=== PATIENT | male | born 1965 | race Caucasian/White ===

== ENCOUNTER → 2018-04-25 11:16 | Outpatient (CLI) | payer OTHER, SELFPAY ==
--- NOTE | 2018-04-25 11:16 | DT_ITS ---
This patient was seen during an EMR downtime April 25, 2018 - May 02, 2018. This patient may have a combination of paper and electronic documentation or all paper documentation. All documentation is viewable within the e-chart portion of [employer] for each patient visit.
[2018-05-01 03:39] LABS: Hematocrit 44.3 % (40-54); Hemoglobin 14.4 g/dl (13.0-16.5); Mean Corp Hgb Conc 32.5 g/gl (32-36); Mean Corpuscular Hgb 31.9 pg (27.0-32.0); Mean Platelet Vol. 10.4 fl (6.2-12.0); Platelet Count 237 K/mm3 (150-450); RBC Distribution Width CV 13.6 % (11.6-14.6); RBC Distribution Width SD 48.6 fl (35.1-43.9); Red Blood Count 4.52 M/mm3 (4.6-6.2); Scan Indicated on CBC? Y/N NO; White Blood Count 6.6 K/mm3 (4.4-11.0)
[2018-05-01 04:12] LABS: ALB/GLOB Ratio 1.1 RATIO (0.9-2.4); Albumin, Serum 3.7 g/dL (3.2-5.0); BUN 17 mg/dL (7-18); BUN/Creat Ratio 14.7 RATIO (10-20); Creatinine, Serum 1.16 mg/dL (0.70-1.30); EST Glomerular Filtration Rate 71 mL/min (>60); Est Glom Filt Rate - Afr Amer 86 mL/min (>60); Globulin 3.4 g/dL (2.2-4.2); Glucose 96 mg/dL (74-106); Protein, Total 7.1 g/dL (6.4-8.2)
[2018-05-01 04:13] LABS: AST(SGOT) 33 U/L (15-37); Alanine Aminotransfer ALT/SGPT 48 U/L (16-61); Alkaline Phosphatase 66 U/L (45-117); Calcium,Total 8.5 mg/dL (8.5-10.1); Chloride 110 mmol/L (98-107); Cholesterol 245 mg/dL (200); High Density Lipoprotein 53 mg/dL; Potassium 4.7 mmol/L (3.5-5.1); Sodium Level 141 mmol/L (136-145); Triglycerides 206 mg/dL; Very Low Density Lipoprotein 41 mg/dL (5-40)
[2018-05-01 04:18] LABS: Anion Gap 8 (5-15)
== END ==
PROVIDERS: Family Provider Family Medicine; PCP Family Medicine; Visit Provider Family Medicine
DX: Z00.00 Encounter for general adult medical examination without abnormal findings (principal); K62.5 Hemorrhage of anus and rectum
CPT/HCPCS: 36415; 80053; 80061; 85027

== ENCOUNTER → 2018-04-28 11:16 | Outpatient (CLI) | payer OTHER, SELFPAY ==
--- NOTE | 2018-04-28 11:16 | DT_ITS ---
This patient was seen during an EMR downtime April 25, 2018 - May 02, 2018. This patient may have a combination of paper and electronic documentation or all paper documentation. All documentation is viewable within the e-chart portion of [employer] for each patient visit.
== END ==
PROVIDERS: Family Provider Family Medicine; PCP Family Medicine; Visit Provider Family Medicine
DX: Z00.00 Encounter for general adult medical examination without abnormal findings (principal); K62.5 Hemorrhage of anus and rectum
CPT/HCPCS: 80053; 80061

== ENCOUNTER → 2018-05-02 10:27 | Outpatient (CLI) | payer OTHER, SELFPAY ==
--- NOTE | 2018-05-02 10:27 | DT_ITS ---
This patient was seen during an EMR downtime April 25, 2018 - May 02, 2018. This patient may have a combination of paper and electronic documentation or all paper documentation. All documentation is viewable within the e-chart portion of [employer] for each patient visit.
[2018-05-02 10:49] LABS: Absolute Lymphocyte Count 1.56 X10^3/ul (0.83-4.51); Absolute Neutrophil Count 2.8 X10^3/uL (2.0-7.7); Basophil# 0.04 X10^3/uL; Basophil% 0.8 % (0-1); Eosinophil# 0.15 X10^3/uL; Eosinophils% 2.9 % (0-5); Hematocrit 43.1 % (40-54); Hemoglobin 14.4 g/dl (13.0-16.5); Lymphocyte # 1.56 X10^3/ul (4.0); Lymphocyte % 30.5 % (19-41); Mean Corp Hgb Conc 33.4 g/gl (32-36); Mean Corpuscular Hgb 31.5 pg (27.0-32.0); Mean Corpuscular Volume 94.3 fL (80-94); Mean Platelet Vol. 9.6 fl (6.2-12.0); Monocyte# 0.51 X10^3/uL; Neutrophil # 2.84 X10^3/uL (2.7-7.7); Neutrophil % 55.4 % (47-70); POSITIVE COUNT NO; POSITIVE DIFFERENTIAL NO; POSITIVE MORPHOLOGY NO; Platelet Count 255 K/mm3 (150-450); RBC Distribution Width CV 13.3 % (11.6-14.6); RBC Distribution Width SD 44.5 fl (35.1-43.9); Red Blood Count 4.57 M/mm3 (4.6-6.2); White Blood Count 5.1 K/mm3 (4.4-11.0)
[2018-05-02 11:09] LABS: International Normalized Ratio 1.1; Partial Thromboplast Time 25.4 Seconds (24.1-36.2); Prothrombin Time (Protime)PT. 13.8 SECONDS (11.7-14.9)
[2018-05-02 11:10] LABS: AST(SGOT) 27 U/L (15-37); Alanine Aminotransfer ALT/SGPT 41 U/L (16-61); Albumin, Serum 3.6 g/dL (3.2-5.0); Alkaline Phosphatase 63 U/L (45-117); Anion Gap 6 (5-15); BUN 11 mg/dL (7-18); BUN/Creat Ratio 11.7 RATIO (10-20); Calcium,Total 8.5 mg/dL (8.5-10.1); Chloride 108 mmol/L (98-107); Creatinine, Serum 0.94 mg/dL (0.70-1.30); EST Glomerular Filtration Rate 90 mL/min (>60); Est Glom Filt Rate - Afr Amer 109 mL/min (>60); Globulin 3.6 g/dL (2.2-4.2); Glucose 102 mg/dL (74-106); Potassium 4.4 mmol/L (3.5-5.1); Protein, Total 7.2 g/dL (6.4-8.2); Sodium Level 139 mmol/L (136-145)
== END ==
PROVIDERS: Family Provider Family Medicine; PCP Family Medicine; Visit Provider Surgery
DX: K62.5 Hemorrhage of anus and rectum (principal); R10.9 Unspecified abdominal pain
CPT/HCPCS: 36415; 80053; 82378; 85025; 85610; 85730

== ENCOUNTER 2018-05-03 05:53 | Day surgery (SDC) | payer OTHER, SELFPAY ==
[2018-05-03] VITALS (8 sets, daily range): BP systolic 88–165; BP diastolic 50–100; PULSE 50–66; RESP 14–16; TEMP 36.2–36.7; O2SAT 94–99; BMI 32.6
--- NOTE | 2018-05-03 | EGD_PTH ---
PATIENT: THELMA ALMARAZ LOC: EN U#:[id number] AGE/SX: 53/M ROOM: RE05/03/[address]: Dr. Jean Pierre Rainey MD : 1965 BED: DIS: 05/03/2018 SPEC #: [id number] RECD: 05/03/18 13:26 STATUS: SOCORRO MILENA #: [id number] HELGA: 05/03/18 00:[address]: Jean Pierre Rainey DEPT: SURGICAL PATHOLOGY RECD BY: Az Lyon ENTERED: 05/03/18 13:46 SP TYPE: EGD BIOPSY OTHR DR: Dr. Shubham Landin MD Tissues: A - Gastric mucous membrane B - Esophageal mucous membrane C - COLON BIOPSY Procedures: Special Stain Group II Surgery Specimen Level IV Alcian Blue/PAS (control) HEADER OPERATION: EGD with biopsies, colonoscopy with biopsies PRE-OP DIAGNOSIS: Bloated, change in bowel habits, epigastric pain TISSUE SUBMITTED: A ? Gastric antral biopsy for H. pylori and path, B ? Distal esophagus, C ? Random colon biopsies MICROSCOPIC DIAGNOSIS A. Gastric antrum, biopsy: Mild gastritis. B. Distal esophagus, biopsy: Fragment of gastroesophageal mucosa with chronic inflammation. Intestinal metaplasia (goblet cell metaplasia) is not identified. See comment. C. Colon, random biopsy: Fragments of colonic mucosa, no pathologic diagnosis. SJ:rg 05/04/18 COMMENT A. The results of immunohistochemistry for Helicobacter pylori will be reported separately ([id number]). B. Alcian blue/PAS stain with matched control is used in the evaluation of the specimen. MICROSCOPIC DESCRIPTION Slides are reviewed. A. The specimen shows fragments of gastric mucosa with chronic inflammatory cell infiltrates in the lamina propria consisting of lymphocytes and plasma cells, consistent with mild chronic gastritis. GROSS DESCRIPTION A - Received in fixative is one container labeled with the patient's name and designated gastric antrum biopsy. The specimen consists of one irregular fragment of light casillas soft tissue that measures 0.4 x 0.3 x 0.1 cm. The specimen is totally submitted in one cassette. B - Received in fixative is one container labeled with the patient's name and designated distal esophagus. The specimen consists of one irregular fragment of light casillas soft tissue that measures 0.4 x 0.3 x 0.1 cm. The specimen is totally submitted in one cassette. C - Received in fixative is one container labeled with the patient's name and designated random colon biopsy. The specimen consists of multiple irregular fragments of light casillas soft tissue that in aggregate measure 0.8 x 0.6 x 0.1 cm. The specimen is totally submitted in one cassette. / SJ:amanda 05/03/18 TC:3 CPT: 50344 x3, 94648
--- NOTE | 2018-05-03 | IMM_PTH ---
PATIENT: THELMA ALMARAZ LOC: EN U#:[id number] AGE/SX: 53/M ROOM: RE05/03/[address]: Dr. Jean Pierre Rainey MD : 1965 BED: DIS: 05/03/2018 SPEC #: [id number] RECD: 05/04/18 12:31 STATUS: SOCORRO MILENA #: [id number] HELGA: 05/03/18 00:[address]: Jean Pierre Rainey DEPT: IMMUNOHISTOCHEMISTRY RECD BY: Shirley Alamo ENTERED: 05/04/18 12:32 SP TYPE: IMMUNO OTHR DR: Dr. Shubham Landin MD Tissues: A - Stomach, NOS Procedures: H Pylori (initial) PHYSICIAN & INSTITUTION [place] [id number] SPECIMEN INFORMATION: Tissue Source: A ? Gastric antral biopsy Clinical Info: Bloated, change in bowel habits, epigastric pain Specimen Number: [id number] CPT code: 40243 METHODOLOGY: Deparaffinized sections of prefer/formalin-fixed tissue or PAP/DQ stained slides are incubated with monoclonal/polyclonal antibodies/oligonucleotide probes. Localization is made via biotin free immunoperoxidase method. Appropriate controls are performed and reacted as expected. Results on target cell population are indicated in the following table: RESULTS: ANTIBODY / CLONE RESULT Block A H Pylori (polyclonal) Negative for Helicobacter pylori organisms. These tests were developed and their performance characteristics determined by [facility]. They may not have been cleared or approved by the U.S. Food and Drug Administration. The FDA has determined that such clearance or approval is not necessary. INTERPRETATION: A. Gastric antral biopsy: Negative for Helicobacter pylori organisms. SJ:amanda 05/06/18
--- NOTE | 2018-05-03 07:44 | OP.PCM_ITS ---
Problem List (1) Epigastric abdominal pain Status: Acute (2) Rectal bleeding Status: Acute (3) Melena Status: Acute Report of Operation Date of Procedure: 05/03/18 Pre-Operative Diagnosis: Epigastric abdominal pain, bloating, rectal bleeding, melena Post-Operative Diagnosis: Small hiatal hernia, minimal distal esophagitis, normal appearing stomach, normal duodenum. Normal colonoscopy, polypoid internal hemorrhoids Surgery/Procedure Performed:: Esophagogastroduodenoscopy with antral and distal esophageal biopsies. Colonoscopy with random colonic biopsies. All biopsies performed with cold forceps Description of Surgical Findings:: Timeout and informed consent was obtained. 53-year-old gentleman was taken to the endoscopy suite. His oropharynx anesthetized with Topex. He was placed in a left lateral decubitus position. He underwent monitored anesthesia care. Flexible gastroscope was inserted into the esophageal inlet. Proximal mid distal esophagus was not remarkable. EG junction was at 42 cm. Minimal esophagitis noted in the small hiatal hernia. The scope was advanced to the stomach which appear to be normal. The scope was advanced through the pylorus the first second and even a portion of the third portions of the duodenum were inspected and were not remarkable. The scope was withdrawn distal stomach inspected the scope was retroflexed the EG junction and cardia inspected greater and lesser curvatures inspected. Small hiatal hernia noted. Biopsy was obtained of the antrum. Excess fluid and air was aspirated free the scope was withdrawn to the distal esophagus. Distal esophageal biopsy was obtained. The scope was further withdrawn without additional abnormality Patient was kept in left loud skin position. Digital rectal exam demonstrated 2 + smooth prostate. There is some polypoid internal hemorrhoidal tissue. Mild mild to moderate external hemorrhoidal tissue. No mass lesions no strictures. The flexible colonoscope inserted the rectum advanced quite readily through the colon. The cecum ileocecal valve area was nicely achieved. Bowel prep was good there was still some liquid stool but that could be aspirated. The cecum and ileocecal valve was nicely achieved the scope was carefully withdrawn from the ascending transverse descending and sigmoid colon. Random colonic biopsies were obtained. The sigmoid was carefully inspected and no significant diverticular disease was identified. Certainly no luminal narrowing. There is no evidence of any acute or chronic blood loss. The scope was retroflexed within the rectum and the rectal verge inspected the hemorrhoidal changes noted. Excess fluid and air was aspirated free the procedure was completed with the patient tolerating it well Impression Small hiatal hernia. Minimal clinical distal esophagitis. Normal-appearing stomach and duodenum Normal-appearing colon. Random cold forcep biopsies pending. Polypoid prolapsing internal hemorrhoidal tissue. Patient has not had a previous colonoscopy next screening colonoscopy recommended in 10 years. Patient could consider future elective surgical treatment with excision of his internal hemorrhoids of rectal bleeding persists The above findings do not explain the patient's significant epigastric abdominal pain and distention and change of bowel habits. I do recommend pursuing the scheduled CT scan of the abdomen and pelvis. Laboratory was not revealing either. Cc: Dr. Landin The upper endoscopy was started 0712 and completed at 0715. The colonoscopy started 0721. The cecum was reached at 0725.33. Procedure was completed at 0734.34. Jean Pierre Rainey M.D., F.A.C.S. Type of Anesthesia:: MAC
== END 2018-05-03 08:25 | disposition home or self-care (01) ==
LOC: EN 05:54 → AC 05:55
PROVIDERS: Family Provider Family Medicine; PCP Family Medicine; Visit Provider Surgery
PROC: 0DJD8ZZ Inspection of Lower Intestinal Tract, Via Natural or Artificial Opening Endoscopic (ICD-10-PCS; CPT 45378; principal; 2018-05-03 06:55)
DX: K29.70 Gastritis, unspecified, without bleeding (principal); K21.0 Gastro-esophageal reflux disease with esophagitis; K44.9 Diaphragmatic hernia without obstruction or gangrene; R10.13 Epigastric pain; K62.5 Hemorrhage of anus and rectum; K92.1 Melena; K64.8 Other hemorrhoids; F32.9 Major depressive disorder, single episode, unspecified; F41.9 Anxiety disorder, unspecified; F17.200 Nicotine dependence, unspecified, uncomplicated; Z79.899 Other long term (current) drug therapy; I25.2 Old myocardial infarction
CPT/HCPCS: 43239; 45380; 88305; 88313; 88342; J7120; A4216

== ENCOUNTER → 2018-05-03 08:36 | Outpatient (CLI) | payer OTHER, SELFPAY ==
--- NOTE | 2018-05-03 08:44 | CT_ITS ---
STUDY: CT ABDOMEN AND PELVIS WITH CONTRAST REASON FOR EXAM: Male, 53 years old. RECTAL BLEEDING, S/P COLONOSCOPY. RADIATION DOSAGE (If Supplied By Facility): CTDIvol = ( 18.58 ) mGy, DLP = ( 1211.36 ) mGycm TECHNIQUE: Transaxial images were obtained from the dome of the diaphragm to the symphysis pubis with oral contrast. 100 ml of Isovue 300 contrast was administered. Sagittal and coronal images were reconstructed. Individualized dose optimization techniques were used for this CT. COMPARISON: None. FINDINGS: The visualized lung bases are unremarkable. The visualized portions of the heart are within normal limits. There is decreased attenuation of the liver consistent with steatosis. Normal gallbladder and extrahepatic biliary system. Normal spleen. Normal pancreas. Normal bilateral adrenal glands. Normal right kidney. Normal left kidney. Normal visualized stomach. Normal small intestine. Normal colon. There are surgical clips in the region of the appendix consistent with a prior appendectomy. Normal abdominal aorta. Normal inferior vena cava. Normal retroperitoneum. Normal urinary bladder. There is a right inguinal hernia repair. There are diffuse degenerative changes of the visualized lumbar spine. CT/Abdomen/Pelvis WITH Contrast IMPRESSION: No acute intra-abdominal or intrapelvic abnormality. Liver steatosis. Electronically Signed: Bartolo Mcneal MD at 11:11 EDT Tel , Service support ,
== END ==
PROVIDERS: Family Provider Family Medicine; PCP Family Medicine; Visit Provider Family Medicine
DX: K62.5 Hemorrhage of anus and rectum (principal)
CPT/HCPCS: 74177; Q9967

== ENCOUNTER → 2018-05-09 07:25 | Outpatient (CLI) | payer OTHER, SELFPAY ==
--- NOTE | 2018-05-09 07:28 | US_ITS ---
STUDY: ABDOMINAL ULTRASOUND - RIGHT UPPER QUADRANT REASON FOR VISIT: Male, 53 years old. Chronic epigastric pain. TECHNIQUE: Ultrasound evaluation of the right upper quadrant was performed with real-time and static recinos-scale imaging. TECHNICAL QUALITY: Adequate. COMPARISON: CT abdomen and pelvis May 03, 2018. FINDINGS: Liver: The liver measures 18.4 cm. There is increased echogenicity consistent with fatty infiltration. The bile ducts are within normal limits. There is hepatic color flow. The direction of portal flow is hepatopetal. There is no demonstrated mass lesion. Gallbladder: Normal distended gallbladder. The gallbladder wall measures 2 mm. There is a negative sonographic Sandra's sign. There is no pericholecystic fluid. There are multiple small echogenic structures within the gallbladder, consistent with multiple gallstones. Common Bile Duct (C.B.D.): The common bile duct measures 5 mm. Pancreas: Normal size of the head, body and tail of the pancreas. There is increased echogenicity of the pancreas. There is no demonstrated pancreatic mass or cyst. Right Kidney: Normal size of the right kidney. The right kidney measures 11.3 cm. Normal renal cortex. The right cortex measures 1.4 cm. There is no demonstrated renal mass or cyst. There is no right hydronephrosis. US/Gallbladder IMPRESSION: Minimal cholelithiasis. Fatty liver. Electronically Signed: Dilip Hollis MD at 2:45 EDT , Service support ,
== END ==
PROVIDERS: Family Provider Family Medicine; PCP Family Medicine; Visit Provider Surgery
DX: K80.20 Calculus of gallbladder without cholecystitis without obstruction (principal)
CPT/HCPCS: 76705

== ENCOUNTER → 2018-05-17 08:33 | Outpatient (CLI) | payer OTHER, SELFPAY ==
--- NOTE | 2018-05-17 08:55 | RAD_ITS ---
STUDY: BARIUM ENEMA. REASON FOR EXAM: Male, 53 years old. Abdominal distention and pain. Rectal bleeding. FLUOROSCOPY TIME (if supplied): (0:33) minutes/seconds TECHNIQUE: A smog technician film was obtained. Following this, barium was introduced retrograde through the rectum. Entire colon was opacified. COMPARISON: None. FINDINGS: Nonspecific bowel gas pattern. Surgical clips are seen in the right lower quadrant most likely secondary to prior hernia repair. Degenerative changes of the lumbar spine. The entire colon was opacified. There is no evidence of antegrade or retrograde obstruction to the flow of contrast. No mass lesion is seen. No filling defect is present. Unremarkable examination. RAD/Barium Enema No Air Cont IMPRESSION: Unremarkable barium enema. Electronically Signed: Edson Potter MD at 11:32 EDT Tel [phone], Service support ,
== END ==
PROVIDERS: Family Provider Family Medicine; PCP Family Medicine; Visit Provider Surgery
DX: R10.9 Unspecified abdominal pain (principal); R14.0 Abdominal distension (gaseous)
CPT/HCPCS: 74270

== ENCOUNTER 2018-05-18 05:24 | Day surgery (SDC) | payer OTHER, SELFPAY ==
--- NOTE | 2018-05-18 | GALL_PTH ---
PATIENT: THELMA ALMARAZ LOC: [facility] [place] U#:[id number] AGE/SX: 53/M ROOM: RE05/18/[address]: Dr. Jean Pierre Rainey MD : 1965 BED: DIS: 05/18/2018 SPEC #: [id number] RECD: 05/18/18 14:10 STATUS: SOCORRO MILENA #: [id number] HELGA: 05/18/18 00:[address]: Jean Pierre Rainey DEPT: SURGICAL PATHOLOGY RECD BY: Ottoniel Russ ENTERED: 05/18/18 14:10 SP TYPE: LORRI FLOYD DR: Dr. Shubham Landin MD Tissues: Gallbladder, NOS Procedures: Surgery Specimen Level III HEADER OPERATION: Laparoscopic cholecystectomy with intraoperative cholangiograph PRE-OP DIAGNOSIS: Gallstones, epigastric pain TISSUE SUBMITTED: Gallbladder MICROSCOPIC DIAGNOSIS Gallbladder: Chronic cholecystitis. No stones are identified in the container or in the gallbladder. SJ:luci 05/19/18 MICROSCOPIC DESCRIPTION Slides are reviewed. GROSS DESCRIPTION Received is one container labeled with the patient's name and designated gallbladder. The specimen consists of a gallbladder measuring 9 cm in length and up to 3.5 cm in diameter. The external surface is pink-casillas, smooth and glistening for the most part. Focally it is granular, hemorrhagic and contains cautery artifact. The gallbladder contains green-yellow mucoid bile. No stones are identified in the container or in the gallbladder. The gallbladder wall measures up to 0.2 cm in thickness. Fleet Administrative Assistant sections from the gallbladder and the cystic duct are submitted in one cassette. / ROJAS:sp 05/18/18 TC:3 CPT: 93250
[2018-05-18 05:43] VITALS: PULSE 96; RESP 18; TEMP 36.9; O2SAT 97; BMI 33.5
--- NOTE | 2018-05-18 07:01 | PCM.DC.GS ---
Discharge Diet: Light diet - advance as tolerated - if you have questions about your diet instructions, please talk to you doctor. Discharge Activity: May Not Drive - for 1 week or while taking narcotic pain medicine. May shower in (days): 1 Lifting Restrictions: 10 pounds Call your doctor if your incision/area has: Continuous Slow Oozing, Sudden Increased Bleeding, Increased Pain/ Swelling, Increased Redness, Foul Smelling Discharge Call your doctor if you observe: Fever of 101 or Higher Suture Line Care: Avoid Pulling/Pushing, Avoid Pinching/Bending Additional Dressing/Incision Instructions:: Change or remove dressing in 4 days. Leave steri-strips in place for 1 week. Allergies/Adverse Reactions: Allergies diphenhydramine [From Benadryl] Allergy (Verified 05/17/18 14:45) Unknown amoxicillin [From Augmentin] Adverse Reaction (Verified 05/17/18 14:45) Unknown clavulanic acid [From Augmentin] Adverse Reaction (Verified 05/17/18 14:45) Unknown Medications to take at Discharge Citalopram [Celexa] 40 mg PO DAILY 10/24/14 Aspirin E.C. [Ecotrin] 81 mg PO DAILY@0800 05/02/18 Dicyclomine HCl 20 mg PO 4X/DAY 05/02/18 Hydroxyzine HCl 50 mg PO DAILY 05/02/18 Metoprolol Tartrate [Lopressor (beta joselin)] 50 mg PO BID 05/02/18 Omeprazole 40 mg PO DAILY 05/02/18 Hydrocodone Bitart/Apap 5-325 [Ilfeld 5MG-325MG] 1 tablet PO Q6H PRN PRN 3 Days #10 tablet 05/18/18 Lisinopril/Hydrochlorothiazide [Zestoretic 20-25 mg Tablet] 1 each PO DAILY 05/18/18 Rosuvastatin Calcium [Crestor] 5 mg PO DAILY 05/18/18 The following prescriptions were given: Hydrocodone Bitart/Apap 5-325 [Ilfeld 5MG-325MG] 1 tablet PO Q6H PRN PRN 3 Days #10 tablet PRN Reason: Pain Primary Care Physician: Shubham Landin MD [Primary Care Provider] - Please Follow Up With: Jean Pierre Rainey MD - [phone] When: Call to make an appointment to be seen in about 10 days.
--- NOTE | 2018-05-18 07:15 | RAD_ITS ---
STUDY: INTRAOPERATIVE CHOLANGIOGRAM. REASON FOR EXAM: Male, 53 years old. Laparoscopic cholecystectomy. FLUOROSCOPY TIME (if supplied): (0:14) minutes/seconds TECHNIQUE: An intraoperative cholangiogram was performed by the surgeon. Imaging was admitted. COMPARISON: None. FINDINGS: The common bile duct is not dilated. No intraluminal filling defect is seen. RAD/Cholangiogram/ O R,Initial IMPRESSION: Unremarkable intraoperative cholangiogram. Electronically Signed: Edson Potter MD at 9:16 EDT Tel [phone], Service support ,
[2018-05-18] MEDS: Bupivacaine Mpf 0.5% 30 ML VIAL ×2 (07:23→08:13)
--- NOTE | 2018-05-18 08:11 | PCM.OPRPT ---
Problem List (1) Chronic cholecystitis with calculus Status: Acute Report of Operation Date of Procedure: 05/18/18 Pre-Operative Diagnosis: Chronic cholecystitis cholelithiasis Post-Operative Diagnosis: Same Surgery/Procedure Performed:: Laparoscopic cholecystectomy with cholangiograms Description of Surgical Findings:: Timeout and informed consent was obtained 53-year-old gentleman was taken the operating. He was placed on the table. He underwent general endotracheal intubation anesthesia. Clindamycin 900 mg were given intravenously preoperatively. The abdomen sterilely prepped draped. 0.5% Marcaine was used as a local anesthetic. A total of 30 cc was used. Skin sites were pre-anesthetized. A vertical infraumbilical incision created holding sutures of 0 Vicryl placed. Varies needle inserted. The abdomen was insufflated CO2 to pressure of 10 mmHg pressure. Breonna trocar inserted. 10 lap scope inserted. No evidence of turgor injuries. The abdomen is inspected. Heavy layer of omentum overlying. The omentum was here adherent to the right lobe of the liver and the omentum was adherent to the gallbladder. Five-minute trochars are placed in the epigastric mid abdomen right upper quadrant tediously the omentum was dissected free with blunt dissection hemo-locks for hemostasis and electrocautery. Gradually was able to elevate the right lobe of the liver and get access to the infundibular area of the gallbladder this was done with a combination of blunt dissection with tedious dissection the hepatocystic angle was identified and clearly the cystic duct cystic artery identified. A Hem-o-lalito clip was placed on the cystic duct incision in the cystic duct client Adriano cath inserted fluoroscopically controlled claims grams obtained demonstrating normal ductal anatomy and free flow of the small bowel. 2 Hem-o-lalito clips were placed on the cystic duct stump prior to transecting it the cystic artery was clipped twice proximally once distally prior to transecting it the posterior cystic artery was clipped proximally prior to transecting it the gallbladder was dissected free from liver bed using electrocautery complete hemostasis was intact. The gallbladder was placed in retrieval bag. The right upper quadrant was irrigated and aspirated free of excess fluid. The gallbladder was exited at the umbilicus with slight enlargement of the vaginal incision. The remaining trochars removed under visualization. The abdomen was allowed to deflate of the CO2. The fascia at the umbilicus port was approximated with interrupted 0 Vicryl figure 8 suture. Skin edges were approximated interrupted 4 Monocryl subdermal stitches. Steri-Strips Telfa and OpSite dressings applied. Sponge and instrument and needle counts were reported the surgeon be correct. Blood loss was minimal. Specimens gallbladder. Drains none. Blood loss minimal. Jean Pierre Rainey M.D., F.A.C.S. Type of Anesthesia:: General Anesthesiologist: Park Sena
--- NOTE | 2018-05-18 08:16 | OP.PCM_ITS ---
Problem List (1) Chronic cholecystitis with calculus Status: Acute Report of Operation Date of Procedure: 05/18/18 Pre-Operative Diagnosis: Chronic cholecystitis cholelithiasis Post-Operative Diagnosis: Same Surgery/Procedure Performed:: Laparoscopic cholecystectomy with cholangiograms Description of Surgical Findings:: Timeout and informed consent was obtained 53-year-old gentleman was taken the operating. He was placed on the table. He underwent general endotracheal intubation anesthesia. Clindamycin 900 mg were given intravenously preoperatively. The abdomen sterilely prepped draped. 0.5% Marcaine was used as a local anesthetic. A total of 30 cc was used. Skin sites were pre- anesthetized. A vertical infraumbilical incision created holding sutures of 0 Vicryl placed. Varies needle inserted. The abdomen was insufflated CO2 to pressure of 10 mmHg pressure. Breonna trocar inserted. 10 lap scope inserted. No evidence of turgor injuries. The abdomen is inspected. Heavy layer of omentum overlying. The omentum was here adherent to the right lobe of the liver and the omentum was adherent to the gallbladder. Five-minute trochars are placed in the epigastric mid abdomen right upper quadrant tediously the omentum was dissected free with blunt dissection hemo-locks for hemostasis and electrocautery. Gradually was able to elevate the right lobe of the liver and get access to the infundibular area of the gallbladder this was done with a combination of blunt dissection with tedious dissection the hepatocystic angle was identified and clearly the cystic duct cystic artery identified. A Hem-o- lalito clip was placed on the cystic duct incision in the cystic duct client Adriano cath inserted fluoroscopically controlled claims grams obtained demonstrating normal ductal anatomy and free flow of the small bowel. 2 Hem-o- lalito clips were placed on the cystic duct stump prior to transecting it the cystic artery was clipped twice proximally once distally prior to transecting it the posterior cystic artery was clipped proximally prior to transecting it the gallbladder was dissected free from liver bed using electrocautery complete hemostasis was intact. The gallbladder was placed in retrieval bag. The right upper quadrant was irrigated and aspirated free of excess fluid. The gallbladder was exited at the umbilicus with slight enlargement of the vaginal incision. The remaining trochars removed under visualization. The abdomen was allowed to deflate of the CO2. The fascia at the umbilicus port was approximated with interrupted 0 Vicryl figure 8 suture. Skin edges were approximated interrupted 4 Monocryl subdermal stitches. Steri-Strips Telfa and OpSite dressings applied. Sponge and instrument and needle counts were reported the surgeon be correct. Blood loss was minimal. Specimens gallbladder. Drains none. Blood loss minimal. Jean Pierre Rainey M.D., F.A.C.S. Type of Anesthesia:: General Anesthesiologist: Park Sena
[2018-05-18 08:25] VITALS: BP 132/82; BP 135/74; PULSE 68; RESP 16; TEMP 36.7; O2SAT 92
[2018-05-18 08:45] VITALS: BP 134/85; BP 135/74; PULSE 72; RESP 16; O2SAT 95
[2018-05-18 09:00] VITALS: BP 130/89; BP 135/74; PULSE 65; RESP 16; TEMP 36.6; O2SAT 94
[2018-05-18 10:42] VITALS: BP 131/86; BP 135/74; PULSE 64; RESP 18; TEMP 37.1; O2SAT 96
== END 2018-05-18 10:45 | disposition home or self-care (01) ==
LOC: SDC 05:25 → AC 05:26
PROVIDERS: Family Provider Family Medicine; PCP Family Medicine; Visit Provider Surgery
PROC: (CPT 47610; principal; 2018-05-18 06:55)
DX: K81.1 Chronic cholecystitis (principal); K21.9 Gastro-esophageal reflux disease without esophagitis; K62.5 Hemorrhage of anus and rectum; I10 Essential (primary) hypertension; F41.9 Anxiety disorder, unspecified; E78.5 Hyperlipidemia, unspecified; E66.9 Obesity, unspecified; Z68.31 Body mass index [BMI] 31.0-31.9, adult; F17.200 Nicotine dependence, unspecified, uncomplicated; Z79.82 Long term (current) use of aspirin; Z79.899 Other long term (current) drug therapy
CPT/HCPCS: 47563; 74300; 76000; 88304; J7120; J2405